=== PATIENT | female | born 1995 | race Caucasian/White ===

== ENCOUNTER 2018-02-15 16:23 | Emergency (ER) | payer SELFPAY ==
[~2018-02-15] VITALS: Ht 162.6 cm; Wt 60.0 kg
[2018-02-15 16:31] VITALS: BP 115/76
== END 2018-02-15 20:15 | disposition left against medical advice (07) ==
LOC: ER 16:23
DX: M54.9 Dorsalgia, unspecified (principal); Z53.21 Procedure and treatment not carried out due to patient leaving prior to being seen by health care provider